=== PATIENT | female | born 1975 | race Caucasian/White ===

== ENCOUNTER 2019-04-27 17:42 | Emergency (ER) | payer BC ==
[~2019-04-27] VITALS: Ht 157.5 cm; Wt 63.0 kg
[2019-04-27 17:48] VITALS: BP 126/52; Ht 157.5 cm; Wt 63.0 kg
== END 2019-04-27 19:01 | disposition home or self-care (01) ==
LOC: ED 17:42
DX: J06.9 Acute upper respiratory infection, unspecified (principal); Z88.0 Allergy status to penicillin; Z88.8 Allergy status to other drugs, medicaments and biological substances